=== PATIENT | male | born 1990 | race Caucasian/White ===

== ENCOUNTER 2017-07-05 13:57 | Emergency (ER) | payer BC ==
[2017-07-05 14:03] VITALS: RESP 16
--- NOTE | 2017-07-05 14:07 | EDPHY ---
H & P Stated Complaint: dog bite Time Seen by Provider: 07/05/17 14:06 HPI/ROS: HPI: This is a 27-year-old male who presents with Chief Complaint: Dog bite arm and leg Location: Right wrist, right calf, left anterior villalpando Quality: Dog bite Duration: Greater than 4 hr ago Signs and Symptoms: No bleeding, no radiation, no numbness, no weakness, no tingling, no incontinence, no decreased range of motion, no swelling, no pain, no fever Timing: Acute Severity: [id number] Context: Patient reports that he was camping with his dog when another dog came over and the dog started to play. They began to become aggressive so the patient stepped in between the [address] dog who is a stranger to him bit him in his right wrist, right calf, and left anterior villalpando. Patient was wearing pants at the time. Right-hand dominant. Dog's pediatric associate reported that rabies vaccination was up-to-date and patient believes this to be true. Police were not notified. Reports tetanus shot up-to-date. Denies pain/paresthesias/ weakness/redness. Patient washed the bite out with water and applied hydrogen peroxide. Modifying Factors: See above Comment: ROS: see HPI Constitutional: No fever, no chills, no weight loss Eyes: No blurred vision Respiratory: No shortness of breath, no cough Cardiovascular: No chest pain Gastrointestinal: No nausea, no vomiting no diarrhea Genitourinary: No dysuria Extremities: No myalgias Neurologic: No weakness, no numbness Skin: No rashes Hematologic: No bruising, no bleeding MEDICAL/SURGICAL/SOCIAL HISTORY: Medical history: Generally healthy. Does not take any regular medications. Surgical history: Denies Social history: Employed. Family history noncontributory CONSTITUTIONAL: Pleasant adult white male, awake and alert, no obvious distress HEENT: Atraumatic and normocephalic. Cardiovascular: Normal S1/S2, regular rate, regular rhythm, without murmur rub or gallop. PULMONARY/CHEST: Symmetrical and nontender. no crepitus. Clear to auscultation bilaterally. Good air movement. No accessory muscle usage. ABDOMEN: Soft, nondistended, nontender, no ecchymosis. PELVIC: no pain with rocking; bilateral hips flexion 125 degrees, extension 30 degrees, with no pain internal rotation and no pain external rotation. BACK: No midline tenderness, no paraspinous spasm, deep tendon reflexes 2/2, no pain with straight leg raise, No foot drop. Achilles reflexes are equal bilaterally. Able to walk on heels and toes without difficulty. EXTREMITIES: 2/2 pulses, strength 5/5, DIP/PIP/MCP flexion/extension intact with good light touch sensation. no deformities, no clubbing, no cyanosis or edema. WRIST: Extension to 70, flexion to 80, radial deviation to 20 degree, ulnar deviation to 30, no scaphoid tenderness, no tenderness over ulnar styloid , no tenderness over radial styloid NEUROLOGICAL: no focal neuro deficits. GCS 15. Light touch sensation intact. SKIN: Warm and dry, 0.25 cm superficial wounds noted to his right calf; no puncture site; 0.25 cm superficial wound noted to his left anterior villalpando; 0.5 cm superficial wound noted to his right volar aspect of his wrist; no active bleeding. no erythema. no rash. Good capillary refill. Source: Patient Exam Limitations: No limitations - Personal History Current Tetanus Diphtheria and Acellular Pertussis (TDAP): Yes Tetanus Vaccine Date: 2009 - Medical/Surgical History Hx Asthma: No Hx Chronic Respiratory Disease: No Hx Diabetes: No Hx Cardiac Disease: No Hx Renal Disease: No Hx Cirrhosis: No Hx Alcoholism: No Hx HIV/AIDS: No Hx Splenectomy or Spleen Trauma: No Other PMH: none - Social History Smoking Status: Never smoked Constitutional: Initial Vital Signs Temperature (C) 36.4 C 07/05/17 14:01 Heart Rate 88 07/05/17 14:01 Respiratory Rate 16 07/05/17 14:01 Blood Pressure 160/81 H 07/05/17 14:01 O2 Sat (%) 96 07/05/17 14:01 O2 Delivery Mode Room Air Allergies/Adverse Reactions: No Known Allergies Allergy (Unverified 07/05/17 14:00) Home Medications: Medication Instructions Recorded Amoxicillin/Clavulanate Pot 875 mg PO BID #14 tab 07/05/17 [Augmentin 875 MG TAB (*)] Medical Decision Making ED Course/Re-evaluation: Rabies vaccination not indicated Tetanus up-to-date No signs of neurovascular compromise/tenting of skin/compartment syndrome/ extremities and joints examined above and below area of concern and are neurovascularly intact. Wounds cleaned and irrigated copiously; bacitracin applied and then clean sterile dressing Given Augmentin and prescription for same Patient does not want to call police. This patient was seen under the supervision of my secondary supervising physician. I evaluated care for this patient independently. Differential Diagnosis: Differential diagnosis includes but is not limited to foreign body tendon injury nerve injury contusion muscle sprain. Departure - Departure Disposition: Home, Routine, Self-Care Clinical Impression: Dog bite Qualifiers: Encounter type: initial encounter Qualified Code(s): W54.0XXA - Bitten by dog, initial encounter Condition: Good Instructions: Animal Bite (ED) Additional Instructions: Keep the dressing dry and in place for 48 hours. After 48 hours, you may remove the dressing; wash the site daily with mild soap and water; then pat dry; apply topical antibiotic ointment and clean sterile dressing until fully healed. Take Tylenol 650 mg every 4 hours and/or Ibuprofen 600 mg every 8 hours with food as needed for pain. Take all of the Augmentin until complete. Return to the ER immediately if you experience redness, red streaks, have fevers /chills, flu like symptoms, limited range of motion, or any other symptoms that concern you. Referrals: [facility],. [Clinic] - As per Instructions Prescriptions: Amoxicillin/Clavulanate Pot [Augmentin 875 MG TAB (*)] 875 mg PO BID #14 tab
[2017-07-05] MEDS ORDERED: AMOXICILLIN/CLAVULANATE POT 875/125 MG TAB PO ONE (14:13)
[2017-07-05 14:38] VITALS: BP 147/90; PULSE 92; TEMP 97.9; O2SAT 94
== END 2017-07-05 14:36 | disposition home or self-care (01) ==
DX: S61.551A Open bite of right wrist, initial encounter (principal); S81.851A Open bite, right lower leg, initial encounter; S81.852A Open bite, left lower leg, initial encounter; W54.0XXA Bitten by dog, initial encounter; Y92.833 Campsite as the place of occurrence of the external cause; Y99.8 Other external cause status; Y93.89 Activity, other specified